=== PATIENT | male | born 1955 | race African-American/Black ===

== ENCOUNTER 2017-09-01 14:31 | Emergency (ER) | payer SELFPAY ==
[~2017-09-01] VITALS: Ht 177.8 cm; Wt 74.8 kg
--- NOTE | 2017-09-01 14:31 | NUR ---
Patient was BIBA at this time
--- NOTE | 2017-09-01 14:32 | NUR ---
PT BIBA FOR EVALUATION OF RIGHT FOOT PAIN X1 YEAR. PT DENIES ANY MEDICAL HX.SKIN IS PINK/WARM/DRY; AAOX4 WITH EVEN AND STEADY GAIT; LUNGS CLEAR BL;PT DENIES ANY FEVER, CP, SOB, OR COUGH AT THIS TIME; PATIENT STATES PAIN OF 10/10 AT THIS TIME; PATIENT POSITIONED FOR COMFORT; HOB ELEVATED; BEDRAILS UP X2; BED DOWN. ER MD MADE AWARE OF PT STATUS.
[2017-09-01 14:34] VITALS: BP 115/56
--- NOTE | 2017-09-01 14:35 | NUR ---
Patient taken to bed 09 via gurney per EMS.
--- NOTE | 2017-09-01 15:52 | NUR ---
Dr. Amaya evaluating patient at bedside.
[2017-09-01] MEDS ORDERED: KETOROLAC 60 MG/2 ML VIAL IM ONE (15:55)
[2017-09-01 16:00] VITALS: BP 130/68
--- NOTE | 2017-09-01 16:00 | NUR ---
Note antoniolani in EDM - 09/01/17 at 1628 by [facility] Patient discharged with v/s stable. Written and verbal after care instructions given and explained. Patient alert, oriented and verbalized understanding of instructions. Ambulatory with steady gait. All questions addressed prior to discharge. ID band removed. Patient advised to follow up with PMD. Rx of MOTRIN given. Patient educated on indication of medication including possible reaction and side effects. Opportunity to ask questions provided and answered.
--- NOTE | 2017-09-01 16:08 | NUR ---
PT REFUSED MED . PT STATED " NO SHOT; I WANT FOOD."
== END 2017-09-01 16:10 | disposition home or self-care (01) ==
LOC: MED 14:31
DX: S90.31XA Contusion of right foot, initial encounter (principal); J02.9 Acute pharyngitis, unspecified; X58.XXXA Exposure to other specified factors, initial encounter; Y93.89 Activity, other specified; Y92.89 Other specified places as the place of occurrence of the external cause; Y99.8 Other external cause status
CPT/HCPCS: 99283; J1885

== ENCOUNTER 2017-09-01 22:37 | Emergency (ER) | payer SELFPAY ==
[~2017-09-01] VITALS: Ht 165.1 cm; Wt 68.0 kg
[2017-09-01 22:42] VITALS: BP 129/62
--- NOTE | 2017-09-01 22:43 | NUR ---
BIBA TO ER BED 7
--- NOTE | 2017-09-01 22:45 | NUR ---
61/M BIBA C/O ETOH, ALOC AND RT ANKLE PAIN. PT AWAKE AND ALERT AT THIS TIME, GCS 15. DENIES N/V/D; SKIN IS PINK/WARM/DRY; AAOX1; LUNGS CLEAR BL; HR EVEN AND REGULAR; PT DENIES ANY FEVER, CP, SOB, OR COUGH AT THIS TIME; VSS; PATIENT POSITIONED FOR COMFORT; HOB ELEVATED; BEDRAILS UP X2; BED DOWN.
--- NOTE | 2017-09-01 22:50 | NUR ---
Patient being evaluated by physician DR. LERMA at bedside.
[2017-09-01] MEDS ORDERED: ONDANSETRON 4 MG/2 ML VIAL IVP ONE (23:00)
[2017-09-01] MEDS ORDERED: PANTOPRAZOLE 40 MG INJ VIAL IVP ONE (23:00)
[2017-09-01] MEDS ORDERED: NACL 0.9% 1,000 ML IV ONE (23:00)
--- NOTE | 2017-09-01 23:11 | NUR ---
PATIENT REFUSING IV INSERTION, MEDICATIONS AND BLOOD WITHDRAWAL. PT STATES "I WANT SANDWICH". ER MD MADE AWARE.
--- NOTE | 2017-09-01 23:16 | NUR ---
PT. EATING SANDWICHES AT BEDSIDE.
[2017-09-01 23:49] VITALS: BP 132/78
--- NOTE | 2017-09-01 23:49 | NUR ---
Patient discharged with v/s stable. Written and verbal after care instructions given and explained. Patient verbalized understanding. Ambulatory with steady gait. All questions addressed prior to discharge. Advised to follow up with PMD. HOMELESS PACKET PROVIDED.
== END 2017-09-01 23:50 | disposition home or self-care (01) ==
LOC: MED 22:37
DX: F10.129 Alcohol abuse with intoxication, unspecified (principal); R03.0 Elevated blood-pressure reading, without diagnosis of hypertension
CPT/HCPCS: 99281; C9113; J2405; J7030